=== PATIENT | male | born 1950 | race Caucasian/White ===

== ENCOUNTER 2016-12-01 18:27 | Observation (INO) | payer MEDICARE, OTHER ==
[~2016-12-01] VITALS: Ht 172.7 cm; Wt 98.0 kg
[~2016-12-01 18:27] MED LIST: ALPR0.5T99 PO; ASPI81TA82 PO; ATOR20TA42 PO; BRIL90TA PO; CARV6.25 PO; NITR.4 SL; OMEP20CA5 PO; TICA90 PO; [UNRECOGNIZED DRUG - OTHER]
[2016-12-01 18:38] VITALS: PULSE 64; RESP 18; TEMP 97.7; O2SAT 96
[2016-12-01] MEDS ORDERED: ISOS30TA3 PO (18:50)
[2016-12-01] MEDS ORDERED: ASPI81CH CHEW (18:50)
[2016-12-01] MEDS ORDERED: ATOR20TA15 PO (18:50)
[2016-12-01] MEDS ORDERED: ALPR0.5T3 PO (18:50)
[2016-12-01] MEDS ORDERED: CLOP75TA PO (18:50)
[2016-12-01] MEDS ORDERED: CARV3.125 PO (18:50)
[2016-12-01] MEDS ORDERED: LISI10TA3 PO (18:50)
[2016-12-01 18:54] VITALS: BP 119/77; PULSE 75; RESP 18; O2SAT 96
[2016-12-01 18:59] VITALS: O2SAT 98
--- NOTE | 2016-12-01 18:59 | PD ---
HPI Chief Complaint: Chest Pain Time Seen by Provider: 18:41 Travel History International Travel<30 days: No Contact w/Intl Traveler<30days: No Traveled to known affect area: No History of Present Illness HPI This patient complains of chest pain. Duration 2 days. Symptoms are intermittent. Not exertional. No alleviating factors. Severity is moderate. Location is left lower sternum radiating up toward the clavicle. History of multiple stents. 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) Endocrine: Yes GERD: Yes Glaucoma: No Genitourinary: No Headaches: No Hepatitis: No Hiatal Hernia: No Hypertension: Yes Immune Disorder: No Inguinal Hernia: No Kidney Stones: No Musculoskeletal: No Neurologic: No Psychiatric: Yes Reproductive: No Respiratory: No Myocardial Infarction: Yes ([place] 2002) Radiation Therapy: No Renal Failure: No Seizures: No Sleep Apnea: Yes Thyroid Disease: No Ulcer: No Past Surgical History Abdominal Surgery: No AICD: No Arteriovenous Shunt: No Cardiac Surgery: Yes (STENT PLX BYPASS 2002) Coronary Artery Bypass Graft: Yes (X 5) Coronary Stent: Yes ( STENT X 4) Ear Surgery: No Endocrine Surgery: No Eye Surgery: No Genitourinary Surgery: Yes (VASECTOMY) Gynecologic Surgery: Yes (VASECTOMY 1975) Insulin Pump: No Joint Replacement: No Oral Surgery: No Pacemaker: No Thoracic Surgery: No Tonsillectomy: Yes Social History Alcohol Use: No Tobacco Use: No Substance Use: No Allergies-Medications (Allergen,Severity, Reaction): Coded Allergies: No Known Allergies (Verified , 04/03/14) Reported Meds & Prescriptions Reported Meds & Active Scripts Active Reported Alprazolam 0.5 Mg Tab 0.5 Mg PO BID PRN Aspirin 81 Mg Chew 81 Mg CHEW DAILY Lisinopril 10 Mg Tab 10 Mg PO DAILY Isosorbide Mononitrate ER (Isosorbide Mononitrate) 30 Mg Dru 30 Mg PO DAILY Atorvastatin (Atorvastatin Calcium) 20 Mg Tab 20 Mg PO HS Coreg (Carvedilol) 3.125 Mg Tab 3.125 Mg PO BID Clopidogrel (Clopidogrel Bisulfate) 75 Mg Tab 75 Mg PO DAILY Review of Systems General / Constitutional: No: Fever Eyes: No: Visual changes HENT: No: Headaches Cardiovascular: Positive: Chest Pain or Discomfort Respiratory: No: Shortness of Breath Gastrointestinal: No: Abdominal Pain Genitourinary: No: Dysuria Musculoskeletal: No: Pain Skin: No Rash Neurologic: No: Weakness Psychiatric: No: Depression Endocrine: No: Polydipsia Hematologic/Lymphatic: No: Easy Bruising Physical Exam Narrative GENERAL: Well-nourished, well-developed patient in no apparent distress. SKIN: Warm and dry. HEAD: Atraumatic. Normocephalic. EYES: Pupils equal and round. No scleral icterus. No injection or drainage. ENT: No nasal bleeding or discharge. Mucous membranes pink and moist. NECK: Trachea midline. No JVD. CARDIOVASCULAR: Regular rate and rhythm. No murmur appreciated. RESPIRATORY: No accessory muscle use. Clear to auscultation. Breath sounds equal bilaterally. GASTROINTESTINAL: Abdomen soft, non-tender, nondistended. Hepatic and splenic margins not palpable. MUSCULOSKELETAL: No obvious deformities. No clubbing. No cyanosis. No edema. NEUROLOGICAL: Awake and alert. No obvious cranial nerve deficits. Motor grossly within normal limits. Normal speech. PSYCHIATRIC: Appropriate mood and affect; insight and judgment normal. Data Data Last Documented VS Vital Signs Date Time Temp Pulse Resp B/P Pulse Ox O2 Delivery O2 Flow Rate FiO2 12/01/16 18:59 98 Room Air 12/01/16 18:54 69 12/01/16 18:54 18 119/77 12/01/16 18:38 97.7 Orders Electrocardiogram (12/01/16 ) Electrocardiogram (12/01/16 ) Basic Metabolic Panel (Bmp) (12/01/16 18:52) Ckmb (Isoenzyme) Profile (12/01/16 18:52) Complete Blood Count With Diff (12/01/16 18:52) Prothrombin Time / Inr (Pt) (12/01/16 18:52) Act Partial Throm Time (Ptt) (12/01/16 18:52) Troponin I (12/01/16 18:52) Chest, Single Ap (12/01/16 18:52) Ecg Monitoring (12/01/16 18:52) Iv Access Insert/Monitor (12/01/16 18:52) Oximetry (12/01/16 18:52) Sodium Chloride 0.9% Flush (Ns Flush) (12/01/16 19:00) Labs Laboratory Tests Test 12/01/16 19:05 White Blood Count 9.0 TH/MM3 Red Blood Count 5.46 MIL/MM3 Hemoglobin 17.2 GM/DL Hematocrit 50.1 % Mean Corpuscular Volume 91.8 FL Mean Corpuscular Hemoglobin 31.4 PG Mean Corpuscular Hemoglobin 34.2 % Concent Red Cell Distribution Width 13.2 % Platelet Count 210 TH/MM3 Mean Platelet Volume 8.1 FL Neutrophils (%) (Auto) 58.0 % Lymphocytes (%) (Auto) 28.5 % Monocytes (%) (Auto) 8.4 % Eosinophils (%) (Auto) 4.3 % Basophils (%) (Auto) 0.8 % Neutrophils # (Auto) 5.2 TH/MM3 Lymphocytes # (Auto) 2.6 TH/MM3 Monocytes # (Auto) 0.8 TH/MM3 Eosinophils # (Auto) 0.4 TH/MM3 Basophils # (Auto) 0.1 TH/MM3 CBC Comment DIFF FINAL Differential Comment Prothrombin Time 10.7 SEC Prothromb Time International 1.0 RATIO Ratio Activated Partial 26.7 SEC Thromboplast Time Sodium Level 138 MEQ/L Potassium Level 4.3 MEQ/L Chloride Level 105 MEQ/L Carbon Dioxide Level 25.7 MEQ/L Anion Gap 7 MEQ/L Blood Urea Nitrogen 12 MG/DL Creatinine 1.20 MG/DL Estimat Glomerular Filtration 60 ML/MIN Rate Random Glucose 96 MG/DL Calcium Level 8.8 MG/DL Total Creatine Kinase 91 U/L Troponin I LESS THAN 0.02 NG/ML [facility] Medical Decision Making Medical Screen Exam Complete: Yes Emergency Medical Condition: Yes Medical Record Reviewed: Yes Differential Diagnosis Differential diagnosis includes PA, angina, pericarditis, pleurisy, GERD, anxiety. Narrative Course I have reviewed the patient's electronic medical record. IV placed I reviewed the EKG which shows sinus rhythm but no acute ST elevation I reviewed the chest x-ray which is normal Extended cardiac monitoring shows sinus rhythm without ectopy CBC is normal Metabolic profile is normal CK is normal Troponin is normal Coagulation studies are normal He took both aspirin and Plavix today. On recheck the patient is resting comfortably. He has known coronary artery disease but workup here is negative. He will be a 23 hour observation in the chest pain center to rule out cardiac cause of his symptoms. Diagnosis Primary Impression: Chest pain in adult Additional Impression: Coronary artery disease Qualified Code: I25.10 - Coronary artery disease involving knik heart, angina presence unspecified, unspecified vessel or lesion type Tarik Hyatt MD Dec 01, 2016 18:59
[2016-12-01] MEDS ORDERED: SODIUM CHLORIDE 0.9% FLUSH 5 ML FLUSH IVF PRN ×2 (19:00→20:30)
--- NOTE | 2016-12-01 19:09 | RADRPT ---
EXAM DATE/TIME: 12/01/2016 18:49 [facility] COMPARISON: CHEST SINGLE AP, April 03, 2014, 17:47. INDICATIONS : Chest pain and pressure MEDICAL HISTORY : Hypertension. Cardiovascular disease. SURGICAL HISTORY : CABG. ENCOUNTER: Initial ACUITY: 1 day PAIN SCORE: 6/10 LOCATION: Bilateral chest FINDINGS: No infiltrate, effusion or pneumothorax demonstrated. Heart size stable, upper limits of normal. Felicitas ent has had previous median sternotomy and CABG. CONCLUSION: No acute cardiopulmonary disease demonstrated. Borderline compensated and stable cardiomegaly. Previo us CABG. Ramon Garduno MD on December 01, 2016 at 19:07 Board Certified Radiologist. This report was verified electronically.
[2016-12-01 19:14] LABS: AUTOMATED NEUTROPHIL # 5.2 TH/MM3 (1.8-7.7); BASOPHIL # 0.1 TH/MM3 (0-0.2); BASOPHIL % 0.8 % (0.0-2.0); EOSINOPHIL # 0.4 TH/MM3 (0-0.4); EOSINOPHIL % 4.3 % (0.0-4.0); HEMATOCRIT 50.1 % (39.0-51.0); HEMO FLAGS DIFF FINAL; LYMPH % 28.5 % (9.0-44.0); LYMPHOCYTE # 2.6 TH/MM3 (1.0-4.8); MEAN CELL VOLUME 91.8 FL (80.0-100.0); MEAN CORPUSCULAR HEMOGLOBIN 31.4 PG (27.0-34.0); MEAN CORPUSCULAR HGB CONC 34.2 % (32.0-36.0); MONO % 8.4 % (0.0-8.0); PLATELET COUNT 210 TH/MM3 (150-450); RED BLOOD COUNT 5.46 MIL/MM3 (4.50-5.90); RED CELL DISTRIBUTION WIDTH 13.2 % (11.6-17.2)
[2016-12-01 19:24] LABS: APTT (PATIENT) 26.7 SEC (24.3-30.1); PROTHROMBIN TIME - PATIENT 10.7 SEC (9.8-11.6)
[2016-12-01 19:46] LABS: ANION GAP 7 MEQ/L (5-15)
[2016-12-01 19:47] LABS: BICARBONATE 25.7 MEQ/L (21.0-32.0); BLOOD UREA NITROGEN 12 MG/DL (7-18); CHLORIDE 105 MEQ/L (98-107); GLOMERULAR FILTRATION RATE 60 ML/MIN (>89); SODIUM (NA) 138 MEQ/L (136-145)
[2016-12-01 19:49] LABS: CREATINE KINASE 91 U/L (39-308); POTASSIUM 4.3 MEQ/L (3.5-5.1)
[2016-12-01] MEDS ORDERED: ONDANSETRON HCL 4 MG/2 ML VIAL IV PRN (20:30)
[2016-12-01 21:10] VITALS: O2SAT 98
[2016-12-01] MEDS: CARVEDILOL 3.125 MG TAB PO SCH (21:23)
[2016-12-01] MEDS: SODIUM CHLORIDE 0.9% FLUSH 5 ML FLUSH IVF SCH (21:23)
[2016-12-01 22:19] VITALS: BP 118/73; PULSE 67; RESP 18; O2SAT 99
[2016-12-01 22:42] LABS: CREATINE KINASE 59 U/L (39-308)
[2016-12-01 23:45] VITALS: PULSE 69
[2016-12-02 00:13] VITALS: BP 134/67; PULSE 87; RESP 18; TEMP 98; O2SAT 97
[2016-12-02 01:50] LABS: CREATINE KINASE 89 U/L (39-308)
[2016-12-02 04:00] VITALS: BP 128/78; PULSE 77; RESP 18; TEMP 98; O2SAT 98
[2016-12-02 04:08] VITALS: PULSE 77
[2016-12-02 07:00] VITALS: BP 111/69; PULSE 64; RESP 18; TEMP 97.7; O2SAT 97
[2016-12-02] MEDS ORDERED: ISOSORBIDE MONONITRATE 30 MG TAB PO SCH ×2 (07:00→10:15)
[2016-12-02 08:00] VITALS: PULSE 67
[2016-12-02] MEDS: CARVEDILOL 3.125 MG TAB PO SCH (08:05)
[2016-12-02] MEDS ORDERED: CLOPIDOGREL 75 MG TAB PO SCH ×2 (09:00→10:15)
[2016-12-02] MEDS ORDERED: ASPIRIN 325 MG TAB PO SCH (09:00)
[2016-12-02] MEDS ORDERED: LISINOPRIL 10 MG TAB PO SCH ×2 (09:00→10:15)
[2016-12-02] MEDS: SODIUM CHLORIDE 0.9% FLUSH 5 ML FLUSH IVF SCH (09:51)
[2016-12-02] MEDS ORDERED: CARVEDILOL 3.125 MG TAB PO SCH (10:15)
[2016-12-02] MEDS ORDERED: REGADENOSON INJ 0.4 MG/5 ML SYR ONE (11:37)
--- NOTE | 2016-12-02 12:58 | MH ---
cc: NANCI GRAHAM MD DATE OF ADMISSION: 12/01/2016 DATE OF 1950 CHIEF COMPLAINT Chest pain HISTORY OF PRESENT ILLNESS This is a 66-year patient with known coronary artery disease including a five vessel bypass and four cardiac stents who comes to the emergency room for further evaluation of chest pain. Chest pain started approximately 06:00 p.m. last night was not brought on with exertion, characterizes as a sharp pain that did not improve with Nitro and also had some chest pressure. There was no radiation. Associated symptoms included nausea and one loose stool. No known precipitating factors or relieving factors. The patient states over the past three to four months, he has had increasing frequency of his angina in addition to longer episodes prior to his prior heart attack. He does follow with Dr. Carolina and has seen Dr. Carolina and notified him of his increased frequency and longer episodes of his angina and was recommended to have a stress test. The patient unfortunately was unable to afford his deductible to complete stress test the last couple of months. PAST MEDICAL HISTORY 1. Hypertension 2. Type 2 diabetes 3. Gastroesophageal reflux disease 4. Hyperlipidemia 5. Angina 6. Four cardiac stents 7. An NE in 2002 8. Anxiety/depression 9. Nearly deaf in his right ear PAST SURGICAL HISTORY CABG with five grafts 2002. FAMILY HISTORY Significant for early onset cardiovascular disease. He has had two brothers in their early 30s from a heart attack. Another brother in his late 30s early 40s also had heart attack. SOCIAL HISTORY He is , retired, has a remote smoking history quit in his early 30s. Denies any alcohol or illegal drug use. He walks with a cane and states he is sedentary. PAST CARDIAC TESTING He follows with Dr. Carolina. He has not had any recent stress testing. His last cardiac catheterization was completed 04/04/14. He was a STEMI at that time and has had three cardiac stents placed. He had an echocardiogram completed 2013 which revealed an ejection fraction of 55%. ALLERGIES He has no known allergies. MEDICATIONS Current medications include: 1. Lisinopril 10 mg daily 2. Xanax 0.5 mg b.i.d. p.r.n. 3. Coreg 3.125 mg b.i.d. 4. Atorvastatin 20 mg q.h.s. 5. Imdur 30 mg q. Day 6. Aspirin 81 mg daily 7. Plavix 75 mg q. Day REVIEW OF SYSTEMS GENERAL: He is in a general state of health with no recent illness, travel or use of antibiotics. No fevers, chills, change in appetite. HEENT: No headache or dysphagia. CARDIOVASCULAR: As stated above, denies any current chest pain or palpitations, intermittent leg pain, or dizziness. RESPIRATORY: No shortness of breath, cough, wheeze, hemoptysis or upper respiratory infection recently. ABDOMEN: No bowel changes such as diarrhea, constipation, blood in the stool or dark stool, pain or distension. Reports a good appetite. No increase or decrease of weight unintentionally. : No dysuria or urgency, frequency or hematuria. MUSCULOSKELETAL: No change in ROM. No difficulty with balance. He does walk with a cane. No motor or sensory deficits, loss of consciousness, syncopal episodes or change in memory. PSYCH: No anxiety or depression. PHYSICAL EXAMINATION VITALS: Temperature 98, pulse 87, respiratory 18, blood pressure 134/67, 97% on room air. GENERAL: He is alert, moderately obese, well-nourished, well-developed in no acute distress, pleasant male HEAD: Normocephalic, atraumatic. EYES: Sclera clear. Conjunctivae was without injection. Pupils are equal and round. ENT: Mucous membranes are pink and moist. NECK: Neck is supple. Trachea is midline. CARDIOVASCULAR: He has a regular rate and rhythm with a slight systolic murmur, no JVD. S1-S2. No S3. No S4. No carotid bruits appreciated. RESPIRATORY: Clear lungs throughout bilateral with no crackles, wheezes or rhonchi. He is nonlabored, symmetrical chest rise. ABDOMEN: Soft, nontender, nondistended. Positive bowel tones. No masses. BACK: No CVAT. No scoliosis. EXTREMITIES: Pulses +2 x4. No dependent edema. MUSCULOSKELETAL: Normal tone x4. He is nontender and there are no obvious deformities. NEUROLOGIC: CN II-XII grossly intact. Motor strength 5/5. PSYCH: He is alert, oriented x3. He has a pleasant affect, appropriate to mood, insight and judgment. SKIN: Normal turgor, normal texture. Skin is warm and dry. LABORATORY CBC is unremarkable. Chemistry is also unremarkable. Three sets of cardiac enzymes are negative. Coagulations unremarkable. Chest x-ray read by the radiologist has a conclusion of no acute cardiopulmonary disease demonstrated. Borderline compensated and stable cardiomegaly. Previous CABG. Three EKG's show a normal sinus rhythm with no ST or T segment changes and Q-waves in inferior leads suggesting inferior NE. ASSESSMENT/PLAN Chest pain. The patient has been admitted to the chest pain center. He was ruled out with three sets of EKG's, cardiac enzymes and was also seen and evaluated by Dr. Nanci Graham. The patient does follow with Dr. Carolina. Dr. Carolina has been made aware of the patient's arrival to the chest pain center and he recommends having a chemical stress test completed while here in the chest pain center and to have him follow up in his office next week. Further disposition to follow further cardiac testing. Dictated by GILDA Gar Cuco Garcia/CHERELLE /12:05 PM /12:58 PM
--- NOTE | 2016-12-02 13:15 | RADRPT ---
EXAM DATE/TIME: 12/02/2016 11:20 [facility] COMPARISON: No previous studies available for comparison. INDICATIONS : Substernal chest pain with prior cardiac stenting, myocardial infarction and CABG. Angina. Coronary a rtery disease. DOSE: 25.6 mCi Tc99m Myoview at stress. 8.3 mCi Tc99m Myoview at rest. 0.4 mg Lexiscan STRESS SYMPTOMS: None. EJECTION FRACTION: > 70% MEDICAL HISTORY : Hypertension. Diabetes mellitus type 2. Myocardial infarction. SURGICAL HISTORY : CABG Coronary artery stent. Vasectomy. ENCOUNTER: Initial ACUITY: 1 day PAIN SCALE: 6/10 LOCATION: Substernal chest TECHNIQUE: The patient underwent pharmacologic stress with infusion of prescribed dose. Continuous ECG tracing was monitored during stress. Gated SPECT imaging was performed after stress and conventional SPECT i maging was performed at rest. The examination was performed on a SPECT/CT scanner, both attenuation and non-corrected datasets were reviewed. FINDINGS: DISTRIBUTION: The maximum perfused segment at stress is in the anterior wall. PERFUSION STUDY: The pattern of perfusion at stress is within normal limits. GATED STUDY: There is intact wall motion and thickening without hypokinetic or dyskinetic segments. CONCLUSION: No evidence of fixed or reversible perfusion abnormalities. Normal wall motion and ejection fraction. RISK CATEGORY: Low (<1% Annual Mortality Rate) William Betancur MD on December 02, 2016 at 13:12 Board Certified Radiologist. This report was verified electronically.
--- NOTE | 2016-12-02 13:19 | HHI.DCPOC ---
Discharge Care Plan Diagnosis: (1) Atypical chest pain (2) Hx of coronary artery disease Goals to Promote Your Health * To prevent worsening of your condition and complications * To maintain your health at the optimal level Directions to Meet Your Goals Take your medications as prescribed Follow your dietary instruction Follow activity as directed Keep your appointments as scheduled Take your immunizations and boosters as scheduled If your symptoms worsen call your PCP, if no PCP go to Urgent Care Center or Emergency Room Smoking is Dangerous to Your Health. Avoid second hand smoke Call the 24-hour hour crisis hotline for domestic abuse at Suellen Mckeon Dec 02, 2016 13:19
--- NOTE | 2016-12-02 15:55 | TR ---
Date Performed: 12/02/2016 Time Performed: 11:51:23 DOCTOR: Evy Hall DRUG LIST: CLINICAL HISTORY: CHEST PAIN REASON FOR TEST: REASON FOR ENDING: OBSERVATION: CONCLUSION: Lexiscan stress test was performed under standard four minute protocol. Radionuclid e was injected one minute prior to ending the test. No electrocardiographic abormalities were present to suggest ischemia. Nuclear imaging and interpretation are pending. COMMENTS:
--- NOTE | 2016-12-02 16:00 | EKG ---
Date Performed: 12/02/2016 Time Performed: 00:55:00 PTAGE: 66 years EKG: Sinus rhythm INFERIOR MYOCARDIAL INFARCTION ABNORMAL ECG Since PREVIOUS TRACING , no significant change noted PREVIOUS TRACIN12/01/2016 22.17 DOCTOR: Evy Hall Interpretating Date/Time 12/02/2016 15:58:47
--- NOTE | 2016-12-02 16:01 | EKG ---
Date Performed: 12/01/2016 Time Performed: 22:17:16 PTAGE: 66 years EKG: Sinus rhythm INFERIOR MYOCARDIAL INFARCTION ABNORMAL ECG Since PREVIOUS TRACING , no significant change noted PREVIOUS TRACIN12/01/2016 18.55 DOCTOR: Evy Hall Interpretating Date/Time 12/02/2016 15:59:37
--- NOTE | 2016-12-02 16:02 | EKG ---
Date Performed: 12/01/2016 Time Performed: 18:41:40 PTAGE: 66 years EKG: SINUS BRADYCARDIA LOW QRS VOLTAGE IN PRECORDIAL LEADS INFERIOR MYOCARDIAL INFARCTION ABNORM AL ECG Since PREVIOUS TRACING , no significant change noted PREVIOUS TRACIN04/03/2014 14.32 DOCTOR: Evy Hall Interpretating Date/Time 12/02/2016 16:01:13
[2016-12-02] MEDS ORDERED: ATORVASTATIN 20 MG TAB PO SCH (21:00)
== END 2016-12-02 14:25 | disposition home or self-care (01) ==
LOC: NEPA 18:27 → NEDA 20:14 → NEPGCP 23:04
PROVIDERS: ADMIT Internal Medicine Interventional Cardiology; ATTEND Internal Medicine Interventional Cardiology
DX: R07.9 Chest pain, unspecified (principal); E78.00 Pure hypercholesterolemia, unspecified; I25.119 Atherosclerotic heart disease of native coronary artery with unspecified angina pectoris; E11.9 Type 2 diabetes mellitus without complications; K21.9 Gastro-esophageal reflux disease without esophagitis; I10 Essential (primary) hypertension; I25.2 Old myocardial infarction; G47.30 Sleep apnea, unspecified; Z79.899 Other long term (current) drug therapy; E78.5 Hyperlipidemia, unspecified; Z95.1 Presence of aortocoronary bypass graft; R94.31 Abnormal electrocardiogram [ECG] [EKG]
CPT/HCPCS: 71010; 78452; 80048; 82550; 84484; 85025; 85610; 85730; 93005; 93017; 99285; A9502; G0378; J2785